=== PATIENT | female | born 1965 | race African-American/Black ===

== ENCOUNTER 2020-01-04 00:43 | Inpatient (IN) | payer BC ==
[~2020-01-04] VITALS: Ht 170.2 cm; Wt 93.9 kg
[2020-01-04] VITALS (12 sets, daily range): BP systolic 64–142; BP diastolic 35–97
[2020-01-04] MEDS ORDERED: SODIUM CHLORIDE 0.9% 1000ML BAG (SEPSIS BOLUS) IV ONE (01:00)
[2020-01-04 01:21] LABS: BG BASE EXCESS -5.8 mmol/L (-2.0-2.0); BG BILEVEL POS AIRWAY PRESSURE 15/5; BG CARBOXYHEMOGLOBIN 0.1 % (0.5-1.5); BG FRACTION INSPIRED OXYGEN 100; BG HCO3 ACT 18.9 mmol/L (22.0-26.0); BG METHEMOGLOBIN 0.3 % (0.0-1.5); BG OXYHEMOGLOBIN 98.6 % (94.0-97.0); BG PCO2 34.4 mmHg (35.0-45.0); BG PH 7.357 (7.350-7.450); BG PO2 386.3 mmHg (75.0-100.0); BG SAMPLE SITE RIGHT RADIAL; BG TOTAL HEMOGLOBIN 11.6 g/dL (12.0-18.0); BG VENT MODE MASK - BIPAP
[2020-01-04 02:22] LABS: HEMATOCRIT. 33.8 % (36.0-48.0); HEMOGLOBIN. 10.9 g/dL (12.0-16.0); MEAN CORPUSCULAR HEMOGLOBIN 29.2 pg (28.0-32.0); MEAN CORPUSCULAR VOLUME 90.6 fL (81.0-99.0); RED BLOOD CELL COUNT 3.73 mill/uL (4.2-5.4); RED CELL DISTRIBUTION WIDTH 19.3 % (11.6-14.6)
[2020-01-04 02:24] LABS: CHLORIDE 110 mEq/L (98-107)
[2020-01-04 02:27] LABS: INR 1.5; PROTHROMBIN TIME 15.6 sec (9.6-11.0)
[2020-01-04 02:42] LABS: PLATELET 33 x1000/uL (130-400)
[2020-01-04] MEDS ORDERED: PIPERACILLIN/TAZOBACTAM 3.375GM/50ML PREMIX IV ONE (03:30)
[2020-01-04] MEDS ORDERED: VANCOMYCIN 1 G PREMIX 200 ML IV SCH (03:30)
[2020-01-04 03:33] LABS: CLARITY URINE CLEAR (CLEAR); COLOR URINE YELLOW (YELLOW); KETONES URINE NEGATIVE (NEGATIVE); LEUKOCYTE ESTERASE URINE NEGATIVE (NEGATIVE); NITRITE URINE NEGATIVE (NEGATIVE); OCCULT BLOOD URINE NEGATIVE (NEGATIVE); PROTEIN URINE NEGATIVE (NEGATIVE); SPECIFIC GRAVITY URINE 1.013 (1.005-1.030); UROBILINOGEN URINE 0.2 E.U./dL (0.2-1.0)
[2020-01-04] MEDS ORDERED: LEVETIRACETAM 500MG PREMIX 100 ML IV ONE (04:15)
[2020-01-04 06:18] LABS: INR 1.2; PARTIAL THROMBOPLASTIN TIME 33.3 sec (23.4-31.0); PROTHROMBIN TIME 12.5 sec (9.6-11.0)
[2020-01-04] MEDS ORDERED: IOHEXOL-350 100 ML BOTTLE ONE (06:22)
[2020-01-04 06:50] LABS: PLATELET ESTIMATE DECREASED
[2020-01-04] MEDS ORDERED: ONDANSETRON HCL 4MG/2ML INJ IV PRN (14:15)
[2020-01-04] MEDS ORDERED: LEVETIRACETAM 500 MG in SODIUM CHLORIDE 0.9% 100 ML IV SCH (14:15)
[2020-01-04] MEDS ORDERED: DEXTROSE 50% WATER 50ML SYRINGE IV PRN (14:15)
[2020-01-04] MEDS ORDERED: DIPHENHYDRAMINE 50MG/ML VIAL IV PRN (14:15)
[2020-01-04] MEDS ORDERED: IPRATROPIUM/ALBUTEROL 0.5-3(2.5)MG/3ML NEB HHN PRN (14:15)
[2020-01-04] MEDS: DEXT 5%/0.45% NACL 1000ML 1,000 ML IV SCH (14:30)
[2020-01-04] MEDS ORDERED: NOREPINEPHRINE 4 MG in DEXT 5% WATER 246 ML IV ONE (15:30)
[2020-01-04] MEDS ORDERED: NOREPINEPHRINE 4MG/250ML PMX 250 ML IV ONE (16:00)
[2020-01-04] MEDS ORDERED: VECURONIUM BROMIDE 10 MG/VIAL IV ONE (16:37)
[2020-01-04] MEDS ORDERED: SODIUM CHLORIDE 0.9% 10ML VIAL ONE (16:37)
[2020-01-04] MEDS ORDERED: ETOMIDATE 2MG/ML 10ML VIAL IV ONE (16:37)
[2020-01-04] MEDS ORDERED: PROPOFOL 10MG/ML 100ML 100 ML IV ONE (16:45)
[2020-01-04] MEDS ORDERED: VANCOMYCIN 1250MG in DEXTROSE 5% WATER 250ML IV SCH (17:00)
[2020-01-04] MEDS ORDERED: CEFEPIME 2,000 MG in DEXT 5% WATER 100 ML IV SCH (17:00)
[2020-01-04] MEDS: METRONIDAZOLE 500 MG PREMIX 100 ML IV SCH ×2 (17:22→21:43)
[2020-01-04] MEDS: BLOOD SUGAR DIAGNOSTIC STRIP TEST SCH ×2 (17:23→21:00)
[2020-01-04 17:27] LABS: BG BASE EXCESS -8.5 mmol/L (-2.0-2.0); BG CARBOXYHEMOGLOBIN 0.3 % (0.5-1.5); BG FRACTION INSPIRED OXYGEN 60; BG HCO3 ACT 18.4 mmol/L (22.0-26.0); BG METHEMOGLOBIN 0.1 % (0.0-1.5); BG OXYHEMOGLOBIN 94.6 % (94.0-97.0); BG PCO2 44.2 mmHg (35.0-45.0); BG PH 7.238 (7.350-7.450); BG PO2 93.3 mmHg (75.0-100.0); BG SAMPLE SITE RIGHT RADIAL; BG TIDAL VOLUME(mL) 500 mL; BG TOTAL HEMOGLOBIN 9.9 g/dL (12.0-18.0); BG VENT MODE VENT - A/C; BG VENT RATE 12 set
[2020-01-04] MEDS ORDERED: TRANEXAMIC ACID 1,000 MG/10 ML TP ONE (17:30)
[2020-01-04] MEDS ORDERED: EPINEPHRINE 1 MG in SODIUM CHLORIDE 0.9% 249 ML IV PRN (19:30)
[2020-01-04] MEDS: INSULIN LISPRO 100 UNITS/ML SUBCUT SCH ×2 (21:00→22:22)
[2020-01-04] MEDS: VASOPRESSIN 10 UNIT in SODIUM CHLORIDE 0.9% 99.5 ML IV PRN ×2 (21:03→21:05)
[2020-01-04] MEDS: LEVETIRACETAM 500MG PREMIX 100 ML IV SCH (21:45)
[2020-01-04] MEDS: FILGRASTIM-TBO 480 MCG/0.8 ML SYRINGE SQ SCH (22:59)
[2020-01-04] MEDS: EPINEPHRINE 2 MG in SODIUM CHLORIDE 0.9% 248 ML IV PRN (23:12)
[2020-01-05] VITALS (103 sets, daily range): BP systolic 49–171; BP diastolic 18–120
[2020-01-05] MEDS: VASOPRESSIN 10 UNIT in SODIUM CHLORIDE 0.9% 99.5 ML IV PRN ×6 (00:56→23:39)
[2020-01-05] MEDS: PHENYLEPHRINE 40 MG in DEXT 5% WATER 246 ML IV PRN ×2 (00:57→05:07)
[2020-01-05] MEDS ORDERED: MORPHINE SULFATE 2 MG/ML CPJ (NOT FOR IM USE) IV PRN (01:45)
[2020-01-05] MEDS: CEFEPIME 2,000 MG in DEXT 5% WATER 100 ML IV SCH ×3 (02:06→16:46)
[2020-01-05] MEDS: METRONIDAZOLE 500 MG PREMIX 100 ML IV SCH ×2 (04:17→15:51)
[2020-01-05] MEDS: NOREPINEPHRINE 32 MG in DEXT 5% WATER 468 ML IV PRN (05:06)
[2020-01-05] MEDS: EPINEPHRINE 2 MG in SODIUM CHLORIDE 0.9% 248 ML IV PRN (05:07)
[2020-01-05] MEDS: BLOOD SUGAR DIAGNOSTIC STRIP TEST SCH ×3 (06:33→18:06)
[2020-01-05] MEDS: INSULIN LISPRO 100 UNITS/ML SUBCUT SCH ×3 (06:38→18:12)
[2020-01-05 06:50] LABS: CHLORIDE 110 mEq/L (98-107)
[2020-01-05 06:59] LABS: PHOSPHORUS 4.3 mg/dL (2.5-4.9)
[2020-01-05 07:02] LABS: T4 FREE 1.01 ng/dL (0.76-1.46)
[2020-01-05 07:20] LABS: HEMATOCRIT. 24.2 % (36.0-48.0); HEMOGLOBIN. 7.9 g/dL (12.0-16.0); MEAN CORPUSCULAR HEMOGLOBIN 29.4 pg (28.0-32.0); MEAN CORPUSCULAR VOLUME 90.6 fL (81.0-99.0); MEAN PLATELET VOLUME 8.4 fl (7.4-10.4); RED BLOOD CELL COUNT 2.68 mill/uL (4.2-5.4); RED CELL DISTRIBUTION WIDTH 19.1 % (11.6-14.6)
[2020-01-05 08:20] LABS: PLATELET 35 x1000/uL (130-400)
[2020-01-05 08:22] LABS: PLATELET ESTIMATE MARKEDLY DECREASED
[2020-01-05] MEDS: IPRATROPIUM/ALBUTEROL 0.5-3(2.5)MG/3ML NEB HHN SCH ×3 (08:24→20:49)
[2020-01-05] MEDS: PANTOPRAZOLE SODIUM 40 MG/VIAL IV SCH (08:44)
[2020-01-05] MEDS: LEVETIRACETAM 500MG PREMIX 100 ML IV SCH ×2 (08:44→21:41)
[2020-01-05 08:48] LABS: BG BASE EXCESS -10.5 mmol/L (-2.0-2.0); BG CARBOXYHEMOGLOBIN 0.5 % (0.5-1.5); BG DEOXYHEMOGLOBIN 2.6 % (0.0-5.0); BG FRACTION INSPIRED OXYGEN 100; BG METHEMOGLOBIN 0.1 % (0.0-1.5); BG OXYGEN SATURATION 97.4 % (92.0-98.5); BG OXYHEMOGLOBIN 96.8 % (94.0-97.0); BG PCO2 31.6 mmHg (35.0-45.0); BG PH 7.295 (7.350-7.450); BG PO2 115.6 mmHg (75.0-100.0); BG SAMPLE SITE RIGHT RADIAL; BG VENT MODE VENT - A/C; BG VENT RATE 14 set
[2020-01-05 09:00] LABS: BG TIDAL VOLUME(mL) 500 mL
[2020-01-05] MEDS: PHENYLEPHRINE 80 MG in DEXT 5% WATER 492 ML IV PRN ×2 (09:12→16:45)
[2020-01-05] MEDS: VANCOMYCIN 1250MG in DEXTROSE 5% WATER 250ML IV SCH ×2 (09:32→22:12)
[2020-01-05] MEDS: DEXT 5%/0.45% NACL 1000ML 1,000 ML IV SCH (10:20)
[2020-01-05] MEDS ORDERED: SODIUM BICARBONATE 8.4% 1 MEQ/ML 50ML SYR IV NR (11:01)
[2020-01-05] MEDS ORDERED: OXYMETAZOLINE HCL NASAL SPRAY 15ML BOTHNSTRLS PRN (12:00)
[2020-01-05] MEDS ORDERED: MAGNESIUM 2 G PREMIX 50 ML IV NR (12:00)
[2020-01-05] MEDS ORDERED: AMIKACIN 500MG in SODIUM CHLORIDE 0.9% 100ML IV SCH (17:00)
[2020-01-05 21:26] LABS: HEMATOCRIT 23.6 % (36.0-48.0); HEMOGLOBIN 7.8 g/dL (12.0-16.0); MEAN CORPUSCULAR HEMOGLOBIN 29.5 pg (28.0-32.0); MEAN CORPUSCULAR VOLUME 89.3 fL (81.0-99.0); RED BLOOD CELL COUNT 2.65 mill/uL (4.2-5.4); RED CELL DISTRIBUTION WIDTH 18.6 % (11.6-14.6)
[2020-01-05] MEDS: FILGRASTIM-TBO 480 MCG/0.8 ML SYRINGE SQ SCH (21:41)
[2020-01-05] MEDS: INSULIN GLARGINE UD 100 UNITS/ML SYR SUBCUT SCH (21:43)
[2020-01-05 21:57] LABS: PLATELET 47 x1000/uL (130-400)
[2020-01-05] MEDS: EPINEPHRINE 4 MG in SODIUM CHLORIDE 0.9% 246 ML IV PRN (22:16)
[2020-01-06] VITALS (81 sets, daily range): BP systolic 44–144; BP diastolic 15–111
[2020-01-06] MEDS: IPRATROPIUM/ALBUTEROL 0.5-3(2.5)MG/3ML NEB HHN SCH ×4 (00:17→20:26)
[2020-01-06] MEDS: CEFEPIME 2,000 MG in DEXT 5% WATER 100 ML IV SCH ×3 (00:21→17:09)
[2020-01-06] MEDS: INSULIN LISPRO 100 UNITS/ML SUBCUT SCH ×4 (00:21→17:36)
[2020-01-06] MEDS: BLOOD SUGAR DIAGNOSTIC STRIP TEST SCH ×4 (00:21→17:37)
[2020-01-06] MEDS: PHENYLEPHRINE 80 MG in DEXT 5% WATER 492 ML IV PRN ×4 (00:22→22:27)
[2020-01-06] MEDS: METRONIDAZOLE 500 MG PREMIX 100 ML IV SCH ×2 (03:14→17:08)
[2020-01-06] MEDS: VASOPRESSIN 10 UNIT in SODIUM CHLORIDE 0.9% 99.5 ML IV PRN ×5 (04:10→22:26)
[2020-01-06 05:49] LABS: HEMATOCRIT. 23.7 % (36.0-48.0); HEMOGLOBIN. 7.9 g/dL (12.0-16.0); MEAN CORPUSCULAR HEMOGLOBIN 29.3 pg (28.0-32.0); MEAN CORPUSCULAR VOLUME 88.6 fL (81.0-99.0); MEAN PLATELET VOLUME 7.8 fl (7.4-10.4); RED BLOOD CELL COUNT 2.68 mill/uL (4.2-5.4); RED CELL DISTRIBUTION WIDTH 18.6 % (11.6-14.6)
[2020-01-06 05:51] LABS: CHLORIDE 98 mEq/L (98-107)
[2020-01-06] MEDS: DEXT 5%/0.45% NACL 1000ML 1,000 ML IV SCH (05:52)
[2020-01-06] MEDS: NOREPINEPHRINE 32 MG in DEXT 5% WATER 468 ML IV PRN ×2 (05:53→22:26)
[2020-01-06 07:41] LABS: PLATELET 27 x1000/uL (130-400)
[2020-01-06 08:00] LABS: PLATELET ESTIMATE MARKEDLY DECREASED
[2020-01-06] MEDS: PANTOPRAZOLE SODIUM 40 MG/VIAL IV SCH (08:04)
[2020-01-06] MEDS: LEVETIRACETAM 500MG PREMIX 100 ML IV SCH ×2 (08:08→21:40)
[2020-01-06 08:48] LABS: BG BASE EXCESS -9.7 mmol/L (-2.0-2.0); BG CARBOXYHEMOGLOBIN 0.1 % (0.5-1.5); BG FRACTION INSPIRED OXYGEN 100; BG METHEMOGLOBIN 0.3 % (0.0-1.5); BG OXYHEMOGLOBIN 94.6 % (94.0-97.0); BG PCO2 27.8 mmHg (35.0-45.0); BG PH 7.349 (7.350-7.450); BG PO2 83.5 mmHg (75.0-100.0); BG SAMPLE SITE RIGHT RADIAL; BG TIDAL VOLUME(mL) 500 mL; BG TOTAL HEMOGLOBIN 7.3 g/dL (12.0-18.0); BG VENT MODE VENT - A/C; BG VENT RATE 16 set
[2020-01-06] MEDS: INSULIN GLARGINE UD 100 UNITS/ML SYR SUBCUT SCH ×2 (09:26→21:23)
[2020-01-06] MEDS ORDERED: POTASSIUM CHLORIDE INJ 40 MEQ in DEXT 5% WATER 250 ML IV NR (10:00)
[2020-01-06] MEDS: VANCOMYCIN 1250MG in DEXTROSE 5% WATER 250ML IV SCH ×2 (10:06→21:16)
[2020-01-06] MEDS: EPINEPHRINE 4 MG in SODIUM CHLORIDE 0.9% 246 ML IV PRN ×2 (10:13→17:16)
[2020-01-06] MEDS: FILGRASTIM-TBO 480 MCG/0.8 ML SYRINGE SQ SCH (21:40)
[2020-01-06] MEDS ORDERED: HYDROCORTISONE SOD SUCCINATE 100 MG/2 ML VIAL IV SCH (22:00)
[2020-01-07] VITALS (16 sets, daily range): BP systolic 0–157; BP diastolic 15–108
[2020-01-07] MEDS: EPINEPHRINE 4 MG in SODIUM CHLORIDE 0.9% 246 ML IV PRN (00:06)
[2020-01-07] MEDS: BLOOD SUGAR DIAGNOSTIC STRIP TEST SCH (00:20)
[2020-01-07] MEDS: INSULIN LISPRO 100 UNITS/ML SUBCUT SCH (00:30)
[2020-01-07] MEDS: CEFEPIME 2,000 MG in DEXT 5% WATER 100 ML IV SCH (00:30)
[2020-01-07] MEDS ORDERED: KCL 20MEQ/100ML PREMIX 100 ML IV NR (01:30)
[2020-01-07] MEDS: VASOPRESSIN 10 UNIT in SODIUM CHLORIDE 0.9% 99.5 ML IV PRN (02:21)
[2020-01-07] MEDS: DEXT 5%/0.45% NACL 1000ML 1,000 ML IV SCH (02:37)
[2020-01-07] MEDS ORDERED: MORPHINE SULFATE 100 MG in DEXT 5% WATER 90 ML IV PRN (04:00)
[2020-01-07] MEDS ORDERED: INSULIN GLARGINE UD 100 UNITS/ML SYR SUBCUT SCH (10:00)
== END 2020-01-07 06:36 | disposition expired | DRG 871 ==
LOC: ER 00:43 → MICUSO 04:32 → EDBEDREQ 04:37 → EDBEDREQSVC 04:37 → EDBEDREQTM 04:37 → ENRESERV 17:33 → CVICU 23:30
PROVIDERS: ADMIT Internal Medicine; ATTEND Internal Medicine
PROC: 5A1945Z Respiratory Ventilation, 24-96 Consecutive Hours (ICD-10-PCS; principal; 2020-01-04)
PROC: 0BH17EZ Insertion of Endotracheal Airway into Trachea, Via Natural or Artificial Opening (ICD-10-PCS; 2020-01-04)
PROC: 02HV33Z Insertion of Infusion Device into Superior Vena Cava, Percutaneous Approach (ICD-10-PCS; 2020-01-04)
PROC: B548ZZA Ultrasonography of Superior Vena Cava, Guidance (ICD-10-PCS; 2020-01-04)
PROC: 5A09357 Assistance with Respiratory Ventilation, Less than 24 Consecutive Hours, Continuous Positive Airway Pressure (ICD-10-PCS; 2020-01-04)
PROC: 30233R1 Transfusion of Nonautologous Platelets into Peripheral Vein, Percutaneous Approach (ICD-10-PCS; 2020-01-05)
DX: A41.51 Sepsis due to Escherichia coli [E. coli] (principal); R65.21 Severe sepsis with septic shock; G93.41 Metabolic encephalopathy; J96.01 Acute respiratory failure with hypoxia; D61.810 Antineoplastic chemotherapy induced pancytopenia; J18.9 Pneumonia, unspecified organism; C85.99 Non-Hodgkin lymphoma, unspecified, extranodal and solid organ sites; E87.2 Acidosis; E66.9 Obesity, unspecified; E11.9 Type 2 diabetes mellitus without complications; I27.21 Secondary pulmonary arterial hypertension; I10 Essential (primary) hypertension; E78.5 Hyperlipidemia, unspecified; G93.89 Other specified disorders of brain; G40.909 Epilepsy, unspecified, not intractable, without status epilepticus; E78.00 Pure hypercholesterolemia, unspecified; M51.37 Other intervertebral disc degeneration, lumbosacral region; M48.00 Spinal stenosis, site unspecified; M43.10 Spondylolisthesis, site unspecified; K76.0 Fatty (change of) liver, not elsewhere classified; R16.0 Hepatomegaly, not elsewhere classified; Z20.828 Contact with and (suspected) exposure to other viral communicable diseases; T45.1X5A Adverse effect of antineoplastic and immunosuppressive drugs, initial encounter; R23.3 Spontaneous ecchymoses; R04.0 Epistaxis; M47.817 Spondylosis without myelopathy or radiculopathy, lumbosacral region; Z86.718 Personal history of other venous thrombosis and embolism; Z86.73 Personal history of transient ischemic attack (TIA), and cerebral infarction without residual deficits; Z51.11 Encounter for antineoplastic chemotherapy; Z68.32 Body mass index [BMI] 32.0-32.9, adult; Y92.89 Other specified places as the place of occurrence of the external cause
CPT/HCPCS: 36415; 36600; 71045; 71275; 74174; 80048; 80053; 80202; 80299; 81003; 82040; 82375; 82728; 82805; 82962; 83036; 83605; 83735; 83880; 84100; 84134; 84145; 84439; 84443; 84484; 84550; 85025; 85027; 86140; 86850; 86900; 87015; 87045; 87070; 87077; 87186; 87427; 87449; 87493; 93005; 93970; 94002; 94003; 94640; 94660; 99291; C9113; J0278; J0692; J1442; J1720; J1815; J1953; J2370; J2543; J2704; J3370; J3475; J3480; J3490; J7050; J7060; P9034; Q9967; U0003-CS